=== PATIENT | male | born 1940 | race Caucasian/White ===

== ENCOUNTER → 2019-08-17 | Outpatient (CLI) | payer BC, MEDICARE ==
[~2019-08-17] MED LIST: ACTOS 45MG45 MG/TAB PO; AMARYL4 MG PO; AMBIEN 5MG TABLE5 MG PO; BETAPACE 120MG120 MG PO; BETAPACE 80MG80 MG PO; CARDIZEM CD 18180 MG PO; CIPRO 500MG TA500 MG PO; CRESTOR5 MG PO; FLOMAX 0.40.4 MG/CAP PO; INSULIN HUMA100 U/ML SQ; IPRATROPIUM BROM3 M1 IH; JANUMET 1000 MG1 TA1 PO; LANTUS100 U/ML SC; LASIX 40MG TABL40 MG PO; LEVEMIR SQ; MICARDIS HCT 251 TAB PO; MUCINEX D1 TER PO; NORVASC 5MG5 MG/TAB PO; NOVLOG SQ; NOVOLOG FLEX100 U/ML SQ; PRADAXA 150MG150 MG PO; PRADAXA75 MG PO; PROAIR HFA0.09 MG/AC IH; RT ADVAIR HFA 1112 G IH; TYLENOL 325MG325 MG PO; ZEBETA 5MG5 MG PO
== END ==
LOC: COL.RAD 08-13 10:00
DX: C82.08 Follicular lymphoma grade I, lymph nodes of multiple sites (principal); J90 Pleural effusion, not elsewhere classified; R59.0 Localized enlarged lymph nodes
CPT/HCPCS: Q9967

== ENCOUNTER 2019-11-08 09:00 | Inpatient (IN) | payer BC, MEDICARE ==
[~2019-11-08] VITALS: Ht 175.3 cm; Wt 87.8 kg
--- NOTE | 2019-11-08 11:36 | NUR ---
Received report from [facility]. patient admitted for chest pain, no pain at time of admission. Currently have Shortness of breath. he said pain get worse when he exhaust himmself. also complained of history of headache. intermittent cough, with butter color sputum, use cipap at home. no nausea or vomiting. 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 unaccessed port on right chest. patient dad of heart failure. patient request to be full code, have literal heariing aids.
[2019-11-08 12:07] VITALS: BP 129/73; PULSE 70; TEMP 97.9
[2019-11-08 15:59] LABS: INR 1.1 (0.8-3.0); PROTHROMBIN TIME 12.1 SECONDS (9.7-12.8)
[2019-11-08 16:02] LABS: PARTIAL THROMBOPLASTIN TIME 50.3 SECONDS (26.0-37.0)
[2019-11-08 16:45] VITALS: BP 145/77; PULSE 70; TEMP 97.7
--- NOTE | 2019-11-08 18:45 | NUR ---
Received report from ADELSO Eldridge. Pt sitting up on edge of bed. Denies needs at this time.
--- NOTE | 2019-11-08 19:47 | NUR ---
Patient is on heparin drip, rate at 16.5mL/hr. Cardiologology team have heart cath planned for 11/08. leftarm iv infiltrated. started another on right forearm. , Bisi visited at bedside.
[2019-11-08 20:00] VITALS: BP 153/78; PULSE 69; TEMP 98.2
--- NOTE | 2019-11-08 21:25 | NUR ---
Assessment completed. Pt resting in bed at this time. Reports moderate pain to right shoulder, PRN Tylenol ordered, pt refused medication at this time. Pt reports dryness of eyes related to prior Shingles infection, PRN Celluvisc eye drops ordered, pt refused eye drops at this time. Generalized reddened dry skin noted over BUE. Bruises to bilateral forearms. Crusty areas on forehead, pt reports from Shingles. Abdomen noted to be distended and firm. Lung sounds diminished to ausculation. Audible wheezing heard from pt while sitting up on side of bed. Heparin drip running to right forearm IV at 16.5 ml/hr. Will continue to monitor.
--- NOTE | 2019-11-08 23:32 | NUR ---
Hep Xa drawn at 2200 per protocol, 6 hours after heparin drip initiation. Hep Xa result was 0.0. Checked pt, right arm was found to be swollen in comparison to left arm. Pt denied pain at right forearm IV site. No other symptoms noted at this time. Heparin drip stopped, new IV initiated to left hand, Luz Elena BAEZ called and updated on situation. Luz Elena ordered to restart heparin drip at 16.5 ml/hr and redraw hep Xa at 0300. Heparin drip restarted at 2322. Infiltrated IV to right forearm removed, pressure dressing placed on site, right arm elevated. Around 2300, while Lyndon DARDEN was restarting IV, pt reported feeling lightheaded. Vital signs obtained BP 143/86, pulse 70, SpO2 94%. Pt reported feeling that his blood sugar was low. Blood glucose checked and found to be 123. Pt brought bailey crackers, pudding, and apple juice. After eating, pt reported feeling okay. Will continue to monitor.
[2019-11-09] VITALS (8 sets, daily range): BP systolic 106–137; BP diastolic 65–83; PULSE 69–76; TEMP 96.8–98.4
--- NOTE | 2019-11-09 03:30 | NUR ---
Heparin drip decreased by 1 ml/hr to 15.5 ml/hr per protocol. Hep Xa 0.72
[2019-11-09] MEDS ORDERED: FLOMAX 0.40.4 MG/CAP PO (03:43)
[2019-11-09] MEDS ORDERED: LASIX 20MG TABL20 MG PO (03:45)
--- NOTE | 2019-11-09 05:46 | NUR ---
Pt asleep throughout night with occasional wake ups to use restroom. Pt ambulates SBA in room. Heparin drip currently running at 15.5 ml/hr. Next Hep Xa at 0900. Pt has had nothing to eat or drink since around 2330 last night. No more reports of lightheadedness since late last night. Swelling to right forearm from infiltrated IV has decreased significantly. Pt denies pain at this time.
[2019-11-09 08:14] LABS: HEMATOCRIT 46.9 % (42.0-52.0); HEMOGLOBIN 15.2 g/dl (13.5-18.0); MEAN CELL VOLUME 97 fl (80.0-100.0); MEAN CORPUSCULAR HEMOGLOBIN 31 pg (27.0-31.0); MEAN CORPUSCULAR HGB CONC 32 g/dl (33.0-37.0); MEAN PLATELET VOLUME 9.9 fl (7.4-10.4); PLATELET COUNT 222 K/mm3 (130-400); RED BLOOD COUNT 4.86 M/mm3 (4.20-5.60); REDCELL DISTRIBUTION WIDTH-CV 15.9 % (11.5-14.5)
[2019-11-09 08:21] LABS: INR 1.1 (0.8-3.0); PROTHROMBIN TIME 12.4 SECONDS (9.7-12.8)
[2019-11-09 08:25] LABS: CALCIUM 9.7 mg/dL (8.4-10.2); CREATININE, serum 1.12 (0.66-1.25); POTASSIUM 4.3 mmol/L (3.4-5.0)
[2019-11-09 08:48] LABS: PARTIAL THROMBOPLASTIN TIME > 250.0 SECONDS (26.0-37.0)
[2019-11-09 08:51] LABS: ALBUMIN 3.3 gm/dL (3.5-5.0); CALCIUM 9.8 mg/dL (8.4-10.2); CREATININE, serum 1.14 (0.66-1.25); POTASSIUM 4.4 mmol/L (3.4-5.0); TOTAL PROTEIN 5.8 gm/dL (6.4-8.2)
--- NOTE | 2019-11-09 10:49 | NUR ---
Initial visit; Patient thanked Plant Cytologist for looking in on him and offering spiritual care.
--- NOTE | 2019-11-09 14:06 | NUR ---
ANDREY met with the patient and his , Tracey Coker (ph#[phone]), to discuss discharge plan. The patient lives in [place] with his . He reports independence with ADLs and has a cane and CPAP. The patient's PCP is Dr. Darrin Mariee and he receives his medications at [facility]. Tracey Coker reports no difficulties obtaining his meds. The patient does not have advanced directive completed. Him and his were interested in obtaining a form for DPOA-HC. ANDREY provided. The patient's reports that she feels fine with the patient returning back home with her upon discharge. SW discussed OT's recommendation of post-acute rehab vs home with family assistance. The patient and his report that they may be interested in swing bed at [place]. SW discussed having a second preference for post-acute rehab. The patient and his report that they do not have a second preference for rehab and would just prefer to return home with home health, if [place] [facility] is not able to accept. ANDREY provided the patient's with Medicare.gov's list of SNFs and home health agencies in the [place] area. ANDREY contacted and faxed a referral to Adilia at [facility]. SW awaiting their screen.
--- NOTE | 2019-11-09 14:25 | NUR ---
SEE MERGE DOCUMENTATION FOR MEDICATION ADMINISRATION TIMES AND INTRA/POST PROCEDURE SEDATION ASSESSMENTS. RIGHT HAND BARBEAU TEST SLUGGISH; WILL NOTIFY MD PRIOR TO PROCEDURE START.
--- NOTE | 2019-11-09 19:25 | NUR ---
Received report from ADELSO Rodriguez. Pt sitting up in chair. Reports moderate pain to right shoulder. Requests PRN Tylenol. Will follow up.
--- NOTE | 2019-11-09 19:53 | NUR ---
PATIENT HAD CATH PROCEDURE, HAD QUESTIONS REGARDING THE CATH BEING NEGATIVE. SHE IS NOT HAPPY THAT SHE WAS INFORMED THAT THE PATIENT HAD A HEART ATTACK. SHE WAS EDUCATED THAT THERE ARE LAB RESULTS, HEART TRACINGS AND OTHER INDICATIONS THAT CAN DIRECT TOWARD SUCH DIAGNOSIS. I DID ENCOURAGE THEY SPEAK WITH CARDIOLOGY IN THE MORNING REGARDING INQUIRES THEY WOULD BE ABLE TO EXPLAIN THE INFOMRATION BETTER TO THEM. PATIENT AND DID NOT WANT TO COMPLETE THE SET OF POST OP VITALS HE WISHED TO HAVE HIS FREEDOM AND THE MACHINE WAS NOISY. DID EXPLAIN THE NEED AND CONCERN FOR THEM MONITORING AND THE STATED IT WAS FINE. WAS ABLE TO OBTAIN SOME VS SETS OFF AND ON.
--- NOTE | 2019-11-09 20:10 | NUR ---
Assessment complete. Pt sitting up in chair. PRN Tylenol administered due to pain in right shoulder. PRN Celluvisc also administered for irritation of eyes. Abdomen firm and distended, bowel sounds audible. Right radial cath site without bleeding or drainage, pressure band removed, site covered by bandaid. No swelling at site, pulses strong. INT to left hand intact, flushes easily. Bruising noted over both arms. Denies other needs at this time.
[2019-11-10] VITALS: BP 112/78; PULSE 72; TEMP 97.3
[2019-11-10 04:00] VITALS: BP 135/68; PULSE 67; TEMP 97.6
--- NOTE | 2019-11-10 07:00 | NUR ---
Report with ADELSO Baumann. Pt sitting up on side of bed, lab at bedside.
[2019-11-10 07:23] LABS: BASO # 0.1 (0.0-0.2); BASO % 0.6 % (0.0-2.0); EOS # 0.1 (0.0-0.7); EOS % 0.9 % (0-4.0); GRAN # 5.7 (1.4-6.5); GRAN % 70.1 % (42.2-75.2); HEMATOCRIT 48.4 % (42.0-52.0); HEMOGLOBIN 15.8 g/dl (13.5-18.0); LYMPH # 1.1 (1.2-3.4); LYMPH % 13.8 % (20.0-51.0); MEAN CELL VOLUME 96 fl (80.0-100.0); MEAN CORPUSCULAR HEMOGLOBIN 32 pg (27.0-31.0); MEAN CORPUSCULAR HGB CONC 33 g/dl (33.0-37.0); MEAN PLATELET VOLUME 9.6 fl (7.4-10.4); MONO # 1.1 (0.1-0.6); MONO % 14.1 % (1.7-9.3); PLATELET COUNT 230 K/mm3 (130-400); RED BLOOD COUNT 5.02 M/mm3 (4.20-5.60); REDCELL DISTRIBUTION WIDTH-CV 15.9 % (11.5-14.5)
[2019-11-10 07:34] VITALS: BP 146/85; PULSE 71; TEMP 97.6
[2019-11-10 07:36] LABS: CALCIUM 10.1 mg/dL (8.4-10.2); CREATININE, serum 1.22 (0.66-1.25); POTASSIUM 5.3 mmol/L (3.4-5.0)
--- NOTE | 2019-11-10 07:41 | NUR ---
Pt had uneventful shift. Slept intermittently throughout night wearing CPAP. Occassional complaints of dry eyes and moderate shoulder pain. Tylenol and Celluvisc eye drops each administered twice.
--- NOTE | 2019-11-10 08:30 | NUR ---
Assessment complete. Pt sitting up on side of bed, A&O x 4. Physical assessment unremarkable. Pt reports slight pain to right shoulder, 4 out of 10. Saline lock IV to left hand without s/s of complications. No further needs reported. Call light in reach.
--- NOTE | 2019-11-10 09:30 | NUR ---
Follow-up; Patient and his thanked Bicycle Subassembler for looking in on him again this morning, offering God's blessings and wishing him well.
[2019-11-10] MEDS ORDERED: ELIQUIS 5MG PO (10:31)
[2019-11-10] MEDS ORDERED: LIPITOR 40MG TA40 MG PO (10:32)
[2019-11-10] MEDS ORDERED: COZAAR 25MG25 MG/TAB PO (10:33)
[2019-11-10] MEDS ORDERED: ASPIRIN 81M81 MG/TA2 PO (10:34)
--- NOTE | 2019-11-10 11:01 | NUR ---
IV in left hand was leaking this morning shortly after administration of sched medications. IV removed with tip intact. Physician notified. Pt probable discharge, no need to start new IV. Telemetry discontinued per pt's request and planning discharge.
--- NOTE | 2019-11-10 13:00 | NUR ---
Hearing Screener attended clinical rounds with the team and patient ready to discharge today. Patient is already partially dressed and states he wants to go home. SW met with patient and his after rounds and patient is agreeable to Home Health services. ANDREY presented Medicare.gov list of agencies and [facility] was selected. ANDREY contacted Lynette at [facility] and faxed referral. Lynette followed up with ANDREY to advise they can accept. ANDREY faxed discharge orders. ANDREY contacted Adilia at [facility] and left a message updating her on discharge plan. No additional needs at this time.
--- NOTE | 2019-11-10 15:48 | NUR ---
Microsoft Solutions Architect spoke with Lynette at [facility] after patient discharged. Lynette reports [employer] only covers 3 prison visits and outpatient PT/OT. Lynette reports she spoke with patient who does not want to be homebound, even for the 3 nursing visits. ANDREY followed up with patient's , Tracey Coker who would like outpatient PT/OT set up at [facility]. ANDREY contacted [facility] about changing orders to outpatient. ANDREY contacted Panchito at [facility] and faxed referral/orders. Panchito states they have to get auth from insurance before scheduling appointment. ANDREY contacted Tracey Coker and advised [facility] would contact her to set up appointment after auth is obtained. ANDREY provided her contact information and encouraged Tracey Coker to contact her if she doesn't hear from [facility] by next week. No additional needs at this time.
== END 2019-11-10 12:15 | disposition home or self-care (01) | DRG 280 ==
LOC: MEDICAL 09:00
PROVIDERS: Physician Assistant; ADMIT Internal Medicine
PROC: 4A023N7 Measurement of Cardiac Sampling and Pressure, Left Heart, Percutaneous Approach (ICD-10-PCS; principal; 2019-11-08)
PROC: B2111ZZ Fluoroscopy of Multiple Coronary Arteries using Low Osmolar Contrast (ICD-10-PCS; 2019-11-08)
PROC: B2151ZZ Fluoroscopy of Left Heart using Low Osmolar Contrast (ICD-10-PCS; 2019-11-08)
DX: I21.4 Non-ST elevation (NSTEMI) myocardial infarction (principal); I50.21 Acute systolic (congestive) heart failure; I42.0 Dilated cardiomyopathy; E87.1 Hypo-osmolality and hyponatremia; R07.9 Chest pain, unspecified; R06.02 Shortness of breath; I48.91 Unspecified atrial fibrillation; Z95.0 Presence of cardiac pacemaker; Z88.0 Allergy status to penicillin; E11.9 Type 2 diabetes mellitus without complications; Z79.4 Long term (current) use of insulin; J44.9 Chronic obstructive pulmonary disease, unspecified; N40.0 Benign prostatic hyperplasia without lower urinary tract symptoms; E78.5 Hyperlipidemia, unspecified; G47.33 Obstructive sleep apnea (adult) (pediatric); Z85.72 Personal history of non-Hodgkin lymphomas; E87.5 Hyperkalemia
CPT/HCPCS: 99222-AI; 99232-AI; 99233-AI; C1769; J1644; J1815; J1940; J2250; J3010; Q9967

== ENCOUNTER 2021-11-14 09:55 | Day surgery (SDC) | payer MEDICARE ==
[2005-04-03 06:07] VITALS: BP 144/87
[~2021-11-14] VITALS: Ht 175.3 cm; Wt 94.4 kg
[~2021-11-14 09:55] MED LIST changes: +ASPIRIN 81M81 MG/TA2 PO; +COZAAR 25MG25 MG/TAB PO; +ELIQUIS 5MG PO; +LASIX 20MG TABL20 MG PO; +LIPITOR 40MG TA40 MG PO
[2021-11-14] MEDS ORDERED: TYLENOL 325MG325 MG PO (11:29)
[2021-11-14] MEDS ORDERED: MUCINEX 60600 MG/TA1 PO (11:29)
[2021-11-14] MEDS ORDERED: PROAIR HFA0.09 MG/AC IH (11:30)
[2021-11-14] MEDS ORDERED: BROVANA15 MCG/2 M IH (11:31)
[2021-11-14] MEDS ORDERED: LIPITOR20 MG PO (11:48)
[2021-11-14] MEDS ORDERED: ZEBETA10 MG PO (11:49)
[2021-11-14] MEDS ORDERED: PULMICORT0.5 MG/2 M IH (11:50)
[2021-11-14] MEDS ORDERED: ELIQUIS 5MG PO (11:51)
[2021-11-14] MEDS ORDERED: NOVOLOG FLEX100 U/ML SQ (11:53)
[2021-11-14] MEDS ORDERED: ATROVENT INHALE14 GM IH (11:54)
[2021-11-14] MEDS ORDERED: COZAAR 50MG50 MG/TAB PO (11:55)
[2021-11-14] MEDS ORDERED: LANTUS100 U/ML SQ (11:55)
[2021-11-14] MEDS ORDERED: MIRALAX PA17 GM/Dose PO (11:56)
[2021-11-14] MEDS ORDERED: FLOMAX 0.40.4 MG/CAP PO (11:57)
[2021-11-14] MEDS ORDERED: SPIRIVA RE2.5 MCG/Ac IH (11:57)
[2021-11-14 12:32] VITALS: BP 135/69; PULSE 59; TEMP 98.3
[2021-11-14 13:43] VITALS: BP 108/51; PULSE 62
--- NOTE | 2021-11-14 13:43 | NUR ---
Patient returns to room 1 per cart from surgery accompanied by Cierra Cueto CRNA and Audra RN. Patient arouses to verbal stimuli. On oxygen per mask at 4L per nasal cannula. IV fluids infusing and site is free of redness. Foot of cart elevated. Ice bag on the right foot. Post op shoe in place. Temp 97.8. Spouse in room.
[2021-11-14 13:58] VITALS: BP 122/78; PULSE 57
--- NOTE | 2021-11-14 13:58 | NUR ---
Spouse leaves to run errands and will return. Encouraged patient to deep breath.
[2021-11-14 14:13] VITALS: BP 135/90; PULSE 63
--- NOTE | 2021-11-14 14:13 | NUR ---
Patient switched to nasal cannula. Taking sips of juice and water.
[2021-11-14 14:28] VITALS: BP 161/82; PULSE 69
--- NOTE | 2021-11-14 14:28 | NUR ---
Continues to sip on juice. Tolerates being off oxygen.
--- NOTE | 2021-11-14 14:43 | NUR ---
Stands at bedside and voids per urinal. Tolerates activity well.
--- NOTE | 2021-11-14 15:45 | NUR ---
Spouse returned. IV discontinued and site is free of redness. Given dismissal instructions and patient and spouse both verbalize understanding of follow up and home cares. Post op shoe on.
--- NOTE | 2021-11-14 15:49 | NUR ---
Patient dismissed to home driven by spouse and taken to the vehicle per wheelchair and assisted into car. Post op shoe in place. Dismissal instructions in hand.
== END 2021-11-14 15:49 | disposition home or self-care (01) ==
LOC: SDCO 09:55
DX: M86.8X7 Other osteomyelitis, ankle and foot (principal); L97.519 Non-pressure chronic ulcer of other part of right foot with unspecified severity
CPT/HCPCS: J0690; J2704; J2795; J7120